=== PATIENT | male | born 1955 | race Caucasian/White ===

== ENCOUNTER 2021-10-04 20:40 | Inpatient (IN) | payer MEDICARE ==
[~2021-10-04] VITALS: Ht 172.7 cm; Wt 80.9 kg
[2021-10-04] MEDS ORDERED: NS 1,000 ML IV ONE (21:25)
[2021-10-04] MEDS ORDERED: MORPHINE 4 MG/ML 1ML VIAL/SYRINGE IV ONE (21:25)
[2021-10-04] MEDS ORDERED: ONDANSETRON 4MG/2ML VIAL IV ONE (21:25)
[2021-10-04 22:05] LABS: BASO % 0.2 % (0.0-1.0); EOS % 0.4 % (0.0-3.0); HEMATOCRIT 23.7 % (42.0-52.0); HEMOGLOBIN 7.7 g/dl (13.5-17.5); LYMPH # 0.9 10^3/uL (1.5-5.0); LYMPH % 18.1 % (24.0-44.0); MEAN CORPUSCULAR HGB CONC 32.5 g/dl (32.0-36.5); MEAN CORPUSCULAR VOLUME 95.6 fl (80.0-96.0); MONO # 0.2 10^3/uL (0.0-0.8); NEUTROPHILS % 77.9 % (36.0-66.0); PLATELET COUNT, AUTOMATED 251 10^3/uL (150-450); RED BLOOD COUNT 2.48 10^6/uL (4.30-6.10); WHITE BLOOD COUNT 5.1 10^3/uL (4.0-10.0)
[2021-10-04 22:41] LABS: ALBUMIN 2.6 GM/DL (3.2-5.2); ALT/SGPT 54 U/L (12-78); BILIRUBIN,TOTAL 0.5 MG/DL (0.2-1.0); BLOOD UREA NITROGEN 14 MG/DL (7-18); CALCIUM LEVEL 10.8 MG/DL (8.8-10.2); CARBON DIOXIDE LEVEL 33 MEQ/L (21-32); CHLORIDE LEVEL 94 MEQ/L (98-107); CREATININE FOR GFR 0.54 MG/DL (0.70-1.30); GLOMERULAR FILTRATION RATE > 60.0 (>49); GLUCOSE, FASTING 125 MG/DL (70-100); LIPASE 23 U/L (73-393); MAGNESIUM LEVEL 1.5 MG/DL (1.8-2.4); POTASSIUM SERUM 3.4 MEQ/L (3.5-5.1); SODIUM LEVEL 134 MEQ/L (136-145); TOTAL PROTEIN 6.2 GM/DL (6.4-8.2)
[2021-10-04] MEDS ORDERED: MAG SULF 1GM/100ML (MAG RUN) 1 GM in IV 1 EA IV ONE (23:00)
[2021-10-05] VITALS (15 sets, daily range): BP systolic 101–141; BP diastolic 55–73; O2SAT 93–95
[2021-10-05] MEDS ORDERED: MAG SULF 1GM/100ML (MAG RUN) 1 GM in IV 1 EA IV ONE ×2
[2021-10-05] MEDS ORDERED: GLUCOSE 4GM CHEW TABLET PO PRN (01:35)
[2021-10-05] MEDS ORDERED: GLUCAGON INJ 1MG VIAL SC PRN (01:35)
[2021-10-05] MEDS ORDERED: DEXTROSE 50% 50 ML SYRINGE IV PRN (01:35)
[2021-10-05] MEDS: NS 1,000 ML IV SCH ×2 (01:35→12:37)
[2021-10-05] MEDS ORDERED: VANCOMYCIN HCL 15 MG in IV FLUID PLACE HOLDER 1 EA IV SCH (01:35)
[2021-10-05] MEDS ORDERED: ACET-897 PO (01:43)
[2021-10-05] MEDS ORDERED: METF-838 PO (01:43)
[2021-10-05] MEDS ORDERED: ONDA-195 PO (01:43)
[2021-10-05] MEDS ORDERED: LOSA25TA13 PO (01:43)
[2021-10-05] MEDS ORDERED: ANOR1AER INH (01:43)
[2021-10-05] MEDS ORDERED: EZET10TA21 PO (01:43)
[2021-10-05] MEDS ORDERED: VITMTA PO (01:43)
[2021-10-05] MEDS ORDERED: ROSU40TA4 PO (01:43)
[2021-10-05] MEDS ORDERED: CLOP75TA2 PO (01:43)
[2021-10-05] MEDS ORDERED: METO50TA7 PO (01:43)
[2021-10-05] MEDS ORDERED: PROC5TAB57 PO (01:43)
[2021-10-05] MEDS ORDERED: HOME MED LIST COMPLETE! XX SCH (01:45)
[2021-10-05 02:14] LABS: INR 1.13; PROTHROMBIN TIME 14.9 SECONDS (12.7-14.5)
[2021-10-05 02:15] LABS: PARTIAL THROMBOPLASTIN TIME 47.1 SECONDS (25.9-37.0)
[2021-10-05 02:18] LABS: FERRITIN 1508 NG/ML (26-388); IRON (FE) 27 UG/DL (65-175); PERCENT SATURATION 16.3 % (19.7-50.0); TOTAL IRON BINDING CAPACITY 166 UG/DL (250-450)
[2021-10-05] MEDS: PIPERACILLIN/TAZOBACTAM SOD 3.375 GM in D5W MINI-BAG PLUS 50 ML IV SCH ×4 (02:21→20:16)
[2021-10-05] MEDS ORDERED: PROCHLORPERAZINE 5MG TAB PO PRN (03:00)
[2021-10-05] MEDS ORDERED: ONDANSETRON 4MG TAB PO PRN (03:00)
[2021-10-05] MEDS ORDERED: POTASSIUM CHLORIDE 10MEQ SR TABLET PO ONE (03:00)
[2021-10-05] MEDS: VANCOMYCIN HCL 1,000 MG, VIAL MATE ADAPTER 1 EACH in NS 250 ML IV SCH ×2 (03:22→12:38)
[2021-10-05] MEDS: EZETIMIBE 10MG TABLET (ZETIA) PO SCH ×2 (04:56→20:15)
[2021-10-05] MEDS: CLOPIDOGREL 75 MG TAB PO SCH ×2 (04:56→20:15)
[2021-10-05] MEDS: LOSARTAN 25 MG TAB PO SCH ×2 (04:57→20:16)
[2021-10-05] MEDS ORDERED: VANCOMYCIN HCL 1,000 MG, VIAL MATE ADAPTER 1 EACH in NS 250 ML IV ONE (05:00)
[2021-10-05] MEDS: ACETAMINOPHEN 500 MG TAB PO PRN ×2 (05:04→19:49)
[2021-10-05] MEDS ORDERED: REMDESIVIR 200 MG in NS 250 ML IV ONE (06:00)
[2021-10-05] MEDS ORDERED: SODIUM CHLORIDE 0.9% INJ 10 ML SYR IV ONE (08:00)
[2021-10-05] MEDS: ENOXAPARIN 40MG/0.4ML SYRINGE (J1650 PER 10MG) SC SCH (08:02)
[2021-10-05] MEDS: HumaLOG INSULIN (NovoLOG) PER UNIT SC SCH ×4 (09:22→21:00)
[2021-10-05 09:29] LABS: HEMATOCRIT 22.6 % (42.0-52.0); HEMOGLOBIN 7.3 g/dl (13.5-17.5); MEAN CORPUSCULAR HEMOGLOBIN 31.2 pg (27.0-33.0); MEAN CORPUSCULAR HGB CONC 32.3 g/dl (32.0-36.5); MEAN CORPUSCULAR VOLUME 96.6 fl (80.0-96.0); PLATELET COUNT, AUTOMATED 211 10^3/uL (150-450); RED BLOOD COUNT 2.34 10^6/uL (4.30-6.10); WHITE BLOOD COUNT 5.2 10^3/uL (4.0-10.0)
[2021-10-05 09:54] LABS: ALBUMIN 2.5 GM/DL (3.2-5.2); ALT/SGPT 46 U/L (12-78); BILIRUBIN,DIRECT 0.2 MG/DL (0.0-0.2); BILIRUBIN,TOTAL 0.4 MG/DL (0.2-1.0); BLOOD UREA NITROGEN 10 MG/DL (7-18); CALCIUM LEVEL 10.2 MG/DL (8.8-10.2); CARBON DIOXIDE LEVEL 30 MEQ/L (21-32); CHLORIDE LEVEL 99 MEQ/L (98-107); CREATININE FOR GFR 0.63 MG/DL (0.70-1.30); GLOMERULAR FILTRATION RATE > 60.0 (>49); GLUCOSE, FASTING 119 MG/DL (70-100); MAGNESIUM LEVEL 1.9 MG/DL (1.8-2.4); POTASSIUM SERUM 3.5 MEQ/L (3.5-5.1); SODIUM LEVEL 135 MEQ/L (136-145); TOTAL PROTEIN 5.9 GM/DL (6.4-8.2)
[2021-10-05 10:08] LABS: ANISOCYTOSIS 1+; ATYPICAL LYMPH 1 % (0-5); LYMPHOCYTES 24 % (16-44); MONOCYTES 1 % (0-5); NEUTROPHILS 73 % (28-66)
[2021-10-05 10:09] LABS: OVALOCYTES 1+; PLATELET ESTIMATE NORMAL (NORMAL); POIKILOCYTOSIS 1+; SMUDGE CELLS 1+
[2021-10-05 12:15] LABS: HEMOGLOBIN 7.2 g/dl (13.5-17.5)
[2021-10-05] MEDS: MULTIVITAMINS/MINERALS THERAP 1 TAB PO SCH (20:15)
[2021-10-05] MEDS: ROSUVASTATIN 10 MG TAB (CRESTOR) PO SCH (20:15)
[2021-10-05] MEDS: METOPROLOL TART 50 MG TAB PO SCH (20:15)
[2021-10-05 21:26] LABS: HEMATOCRIT 28.5 % (42.0-52.0)
[2021-10-05 21:28] LABS: HEMOGLOBIN 9.6 g/dl (13.5-17.5)
[2021-10-05] MEDS: SODIUM CHLORIDE 0.9% INJ 10 ML SYR IV PRN (21:37)
[2021-10-06] VITALS (8 sets, daily range): BP systolic 114–120; BP diastolic 59–77; O2SAT 94–97
[2021-10-06] MEDS: PIPERACILLIN/TAZOBACTAM SOD 3.375 GM in D5W MINI-BAG PLUS 50 ML IV SCH ×4 (03:11→22:26)
[2021-10-06] MEDS: SODIUM CHLORIDE 0.9% INJ 10 ML SYR IV PRN (04:37)
[2021-10-06] MEDS: HumaLOG INSULIN (NovoLOG) PER UNIT SC SCH ×4 (08:05→20:55)
[2021-10-06 08:25] LABS: HEMATOCRIT 28.1 % (42.0-52.0); HEMOGLOBIN 9.3 g/dl (13.5-17.5); MEAN CORPUSCULAR HEMOGLOBIN 30.7 pg (27.0-33.0); MEAN CORPUSCULAR HGB CONC 33.1 g/dl (32.0-36.5); MEAN CORPUSCULAR VOLUME 92.7 fl (80.0-96.0); PLATELET COUNT, AUTOMATED 214 10^3/uL (150-450); RED BLOOD COUNT 3.03 10^6/uL (4.30-6.10); WHITE BLOOD COUNT 5.4 10^3/uL (4.0-10.0)
[2021-10-06] MEDS: REMDESIVIR 100 MG in NS 250 ML IV SCH (08:34)
[2021-10-06] MEDS: ENOXAPARIN 40MG/0.4ML SYRINGE (J1650 PER 10MG) SC SCH (08:35)
[2021-10-06] MEDS: SODIUM CHLORIDE 0.9% INJ 10 ML SYR IV SCH (08:37)
[2021-10-06 08:48] LABS: BLOOD UREA NITROGEN 11 MG/DL (7-18); CALCIUM LEVEL 10.2 MG/DL (8.8-10.2); CARBON DIOXIDE LEVEL 28 MEQ/L (21-32); CHLORIDE LEVEL 102 MEQ/L (98-107); CREATININE FOR GFR 0.64 MG/DL (0.70-1.30); GLOMERULAR FILTRATION RATE > 60.0 (>49); GLUCOSE, FASTING 115 MG/DL (70-100); SODIUM LEVEL 138 MEQ/L (136-145)
[2021-10-06] MEDS ORDERED: SODIUM CHLORIDE 0.9% INJ 10 ML SYR IV SCH (09:00)
[2021-10-06] MEDS ORDERED: POTASSIUM CHLORIDE 10MEQ SR TABLET PO ONE ×2 (09:35→15:00)
[2021-10-06 09:44] LABS: ATYPICAL LYMPH 1 % (0-5); GIANT PLATELETS 1+; LYMPHOCYTES 6 % (16-44); MONOCYTES 1 % (0-5); NEUTROPHILS 86 % (28-66); OVALOCYTES 3+; PLATELET ESTIMATE NORMAL (NORMAL)
[2021-10-06 09:45] LABS: TEAR DROP CELLS 1+
[2021-10-06 09:46] LABS: MICROCYTOSIS 1+
[2021-10-06 11:41] LABS: ERYTHROCYTE SEDIMENTATION RATE 94 mm/hr (0-20)
[2021-10-06] MEDS: VANCOMYCIN HCL 1,000 MG, VIAL MATE ADAPTER 1 EACH in NS 250 ML IV SCH ×2 (12:55→20:48)
[2021-10-06] MEDS: ACETAMINOPHEN 500 MG TAB PO PRN (17:47)
[2021-10-06] MEDS: MULTIVITAMINS/MINERALS THERAP 1 TAB PO SCH (20:54)
[2021-10-06] MEDS: CLOPIDOGREL 75 MG TAB PO SCH (20:54)
[2021-10-06] MEDS: EZETIMIBE 10MG TABLET (ZETIA) PO SCH (20:54)
[2021-10-06] MEDS: ROSUVASTATIN 10 MG TAB (CRESTOR) PO SCH (20:54)
[2021-10-06] MEDS: LOSARTAN 25 MG TAB PO SCH (20:55)
[2021-10-06] MEDS: METOPROLOL TART 50 MG TAB PO SCH (20:55)
[2021-10-07] VITALS (9 sets, daily range): BP systolic 113–140; BP diastolic 74–77; O2SAT 94–96
[2021-10-07] MEDS: ACETAMINOPHEN 500 MG TAB PO PRN (03:43)
[2021-10-07] MEDS: PIPERACILLIN/TAZOBACTAM SOD 3.375 GM in D5W MINI-BAG PLUS 50 ML IV SCH ×4 (03:48→22:00)
[2021-10-07] MEDS: VANCOMYCIN HCL 1,000 MG, VIAL MATE ADAPTER 1 EACH in NS 250 ML IV SCH ×3 (04:53→23:21)
[2021-10-07 07:44] LABS: BASO % 0.2 % (0.0-1.0); EOS % 0.4 % (0.0-3.0); HEMATOCRIT 30.9 % (42.0-52.0); HEMOGLOBIN 10.1 g/dl (13.5-17.5); LYMPH % 18.6 % (24.0-44.0); MEAN CORPUSCULAR HEMOGLOBIN 30.2 pg (27.0-33.0); MEAN CORPUSCULAR HGB CONC 32.7 g/dl (32.0-36.5); MEAN CORPUSCULAR VOLUME 92.5 fl (80.0-96.0); MONO # 0.2 10^3/uL (0.0-0.8); NEUTROPHILS # 4.2 10^3/uL (1.5-8.5); NEUTROPHILS % 77.2 % (36.0-66.0); PLATELET COUNT, AUTOMATED 231 10^3/uL (150-450); RED BLOOD COUNT 3.34 10^6/uL (4.30-6.10); WHITE BLOOD COUNT 5.4 10^3/uL (4.0-10.0)
[2021-10-07 08:15] LABS: BLOOD UREA NITROGEN 9 MG/DL (7-18); CALCIUM LEVEL 10.4 MG/DL (8.8-10.2); CARBON DIOXIDE LEVEL 28 MEQ/L (21-32); CHLORIDE LEVEL 101 MEQ/L (98-107); GLOMERULAR FILTRATION RATE > 60.0 (>49); GLUCOSE, FASTING 115 MG/DL (70-100); POTASSIUM SERUM 3.5 MEQ/L (3.5-5.1); SODIUM LEVEL 136 MEQ/L (136-145)
[2021-10-07] MEDS: SODIUM CHLORIDE 0.9% INJ 10 ML SYR IV SCH (09:00)
[2021-10-07] MEDS: HumaLOG INSULIN (NovoLOG) PER UNIT SC SCH ×4 (09:24→20:27)
[2021-10-07] MEDS: ENOXAPARIN 40MG/0.4ML SYRINGE (J1650 PER 10MG) SC SCH (09:24)
[2021-10-07] MEDS: REMDESIVIR 100 MG in NS 250 ML IV SCH (09:25)
[2021-10-07] MEDS ORDERED: ISOVUE-370 76% 100ML VIAL As Ordered ONE (13:08)
[2021-10-07 13:50] LABS: MAGNESIUM LEVEL 1.7 MG/DL (1.8-2.4)
[2021-10-07] MEDS ORDERED: MAG SULF 1GM/100ML (MAG RUN) 1 GM in IV 1 EA IV ONE (17:00)
[2021-10-07] MEDS: EZETIMIBE 10MG TABLET (ZETIA) PO SCH (21:56)
[2021-10-07] MEDS: MULTIVITAMINS/MINERALS THERAP 1 TAB PO SCH (21:56)
[2021-10-07] MEDS: ROSUVASTATIN 10 MG TAB (CRESTOR) PO SCH (21:59)
[2021-10-07] MEDS: METOPROLOL TART 50 MG TAB PO SCH (21:59)
[2021-10-07] MEDS: LOSARTAN 25 MG TAB PO SCH (21:59)
[2021-10-07] MEDS: CLOPIDOGREL 75 MG TAB PO SCH (21:59)
[2021-10-07] MEDS ORDERED: MOM 30ML SUSPENSION UDC PO PRN (22:20)
[2021-10-07] MEDS ORDERED: DOCUSATE SODIUM 100MG CAPSULE PO PRN (22:20)
[2021-10-07] MEDS ORDERED: MIRALAX *UNIT DOSE* 17GM PACKET PO PRN (22:20)
[2021-10-08] VITALS: O2SAT 96
[2021-10-08] MEDS ORDERED: CALCIUM CARBONATE 500 MG CHEW U/D PO PRN (00:55)
[2021-10-08] MEDS: ACETAMINOPHEN 500 MG TAB PO PRN (01:08)
[2021-10-08] MEDS: PIPERACILLIN/TAZOBACTAM SOD 3.375 GM in D5W MINI-BAG PLUS 50 ML IV SCH ×2 (02:17→10:12)
[2021-10-08 04:00] VITALS: O2SAT 97
[2021-10-08 04:34] VITALS: BP 115/67
[2021-10-08] MEDS: VANCOMYCIN HCL 1,000 MG, VIAL MATE ADAPTER 1 EACH in NS 250 ML IV SCH (05:46)
[2021-10-08 08:00] VITALS: O2SAT 95
[2021-10-08 08:37] LABS: BASO % 0.2 % (0.0-1.0); EOS % 0.8 % (0.0-3.0); HEMATOCRIT 30.3 % (42.0-52.0); LYMPH % 21.6 % (24.0-44.0); MEAN CORPUSCULAR HEMOGLOBIN 30.6 pg (27.0-33.0); MEAN CORPUSCULAR VOLUME 92.7 fl (80.0-96.0); MONO # 0.2 10^3/uL (0.0-0.8); MONO % 4.6 % (2.0-8.0); NEUTROPHILS # 3.4 10^3/uL (1.5-8.5); NEUTROPHILS % 72.4 % (36.0-66.0); PLATELET COUNT, AUTOMATED 225 10^3/uL (150-450); RED BLOOD COUNT 3.27 10^6/uL (4.30-6.10); WHITE BLOOD COUNT 4.8 10^3/uL (4.0-10.0)
[2021-10-08] MEDS: HumaLOG INSULIN (NovoLOG) PER UNIT SC SCH ×2 (08:40→11:52)
[2021-10-08] MEDS: REMDESIVIR 100 MG in NS 250 ML IV SCH (08:41)
[2021-10-08 09:00] LABS: BLOOD UREA NITROGEN 10 MG/DL (7-18); CALCIUM LEVEL 10.7 MG/DL (8.8-10.2); CARBON DIOXIDE LEVEL 28 MEQ/L (21-32); CHLORIDE LEVEL 100 MEQ/L (98-107); CREATININE FOR GFR 0.57 MG/DL (0.70-1.30); GLOMERULAR FILTRATION RATE > 60.0 (>49); GLUCOSE, FASTING 116 MG/DL (70-100); MAGNESIUM LEVEL 1.7 MG/DL (1.8-2.4); POTASSIUM SERUM 3.6 MEQ/L (3.5-5.1); SODIUM LEVEL 136 MEQ/L (136-145)
[2021-10-08 09:44] LABS: PTH INTACT < 6.3 PG/ML (18.5-88.0)
[2021-10-08] MEDS ORDERED: MAG SULF 1GM/100ML (MAG RUN) 1 GM in IV 1 EA IV ONE (10:10)
[2021-10-08] MEDS: ENOXAPARIN 40MG/0.4ML SYRINGE (J1650 PER 10MG) SC SCH (10:11)
[2021-10-08] MEDS: SODIUM CHLORIDE 0.9% INJ 10 ML SYR IV SCH (10:12)
[2021-10-08] MEDS ORDERED: CIPR-249 PO (10:43)
[2021-10-08] MEDS ORDERED: FLAG375C PO (10:43)
[2021-10-08 12:07] VITALS: O2SAT 93
== END 2021-10-08 14:25 | disposition home or self-care (01) | DRG 178 ==
LOC: M ED 20:40 → M ED INP 10-05 00:45 → M MS5PR 10-05 02:50 → M 4MAIN 10-05 11:00
PROVIDERS: ADMIT Family Medicine; ATTEND Internal Medicine
PROC: XW033E5 Introduction of Remdesivir Anti-infective into Peripheral Vein, Percutaneous Approach, New Technology Group 5 (ICD-10-PCS; principal; 2021-10-05)
PROC: 30233N1 Transfusion of Nonautologous Red Blood Cells into Peripheral Vein, Percutaneous Approach (ICD-10-PCS; 2021-10-05)
DX: U07.1 COVID-19 (principal); C34.90 Malignant neoplasm of unspecified part of unspecified bronchus or lung; C79.51 Secondary malignant neoplasm of bone; C78.7 Secondary malignant neoplasm of liver and intrahepatic bile duct; J90 Pleural effusion, not elsewhere classified; Z92.21 Personal history of antineoplastic chemotherapy; I25.10 Atherosclerotic heart disease of native coronary artery without angina pectoris; I25.2 Old myocardial infarction; Z95.5 Presence of coronary angioplasty implant and graft; E11.9 Type 2 diabetes mellitus without complications; Z90.49 Acquired absence of other specified parts of digestive tract; Z87.891 Personal history of nicotine dependence; K52.9 Noninfective gastroenteritis and colitis, unspecified; D64.9 Anemia, unspecified; E87.6 Hypokalemia; E83.42 Hypomagnesemia; I10 Essential (primary) hypertension; Z79.899 Other long term (current) drug therapy; Z91.013 Allergy to seafood; E78.5 Hyperlipidemia, unspecified